=== PATIENT | female | born 1940 ===

== ENCOUNTER → 2020-03-14 | Outpatient (REF) | LOC: M LAB LCGH 07:56 | PROVIDERS: ATTEND Internal Medicine | DX: Z00.00 Encounter for general adult medical examination without abnormal findings (principal) ==

== ENCOUNTER → 2020-03-15 | Outpatient (REF) | LOC: M LAB LCGH 07:59 | PROVIDERS: ATTEND Internal Medicine | DX: Z00.00 Encounter for general adult medical examination without abnormal findings (principal) ==